=== PATIENT | female | born 1955 | race Caucasian/White ===

== ENCOUNTER → 2020-11-15 | Outpatient (CLI) | payer MEDICARE, MEDICAID ==
[~2020-11-15] MED LIST: BLACK COHOSH540 MG PO; FLONASE NASAL S16 GM NS; GARLIC1 TAB PO; GARLIC100 MG PO; OMEGA-3 FISH1000 MG PO; OMEGA-3 FISH1200 MG PO; PREMPRO 0.625/21 TAB PO; PRINIVIL10 MG PO; PROZAC 20MG20 MG PO; ZITHROMAX500 M2 PO; ZYRTEC 10MG10 MG PO
[2020-11-21 07:18] LABS: THYROTROPIN RECEPTOR AB XXX
== END ==
LOC: COL.RAD 13:22
PROVIDERS: Internal Medicine
DX: J02.9 Acute pharyngitis, unspecified (principal); E05.90 Thyrotoxicosis, unspecified without thyrotoxic crisis or storm